=== PATIENT | female | born 1945 | race Caucasian/White ===

== ENCOUNTER 2017-03-28 06:14 | Day surgery (SDC) | payer MEDICARE, OTHER ==
--- NOTE | ~2017-03-28 | EGD ---
EGD REPORT [facility] [address] [place]. [address] NAME: RON CLANCY : [birth year] STATUS : REG [facility]#: [id number] AGE: 71 ADM/REG DATE : 03/28/17 MR#: [id number] REPORT SERV DATE: 03/28/17 DICTATED BY: JENNIE SAMSON DATE: 03/28/17 REPORT STATUS : Draft TRANSCRIBED BY: [facility] DATE: 03/28/17 Endoscopy Center Patient Name: Ron Clancy Date of : 1945 Attending MD: JENNIE SAMSON MD Procedure Date No Time: 03/28/2017 Procedure: Colonoscopy Indications: FH of Colon Cancer - multiple 1st degree relatives, FH of Colon Cancer - multiple second-degree relatives Referring MD: John Stahl Medicines: as per anesthesia Complications: No immediate complications. Procedure: Pre-Anesthesia Assessment: - ASA Grade Assessment: III - A patient with severe systemic disease. After I obtained informed consent, the scope was passed under direct vision. Throughout the procedure, the patient's blood pressure, pulse, and oxygen saturations were monitored continuously. The PCF [id number] was introduced through the anus and advanced to the cecum, identified by appendiceal orifice and ileocecal valve. The colonoscopy was performed without difficulty. The patient tolerated the procedure. The quality of the bowel preparation was adequate to identify polyps. Findings: The perianal and digital rectal examinations were normal. Many small and large-mouthed diverticula were found in the sigmoid colon. Internal hemorrhoids were found during endoscopy and were mild. Impression: - Diverticulosis in the sigmoid colon. - Internal hemorrhoids. Recommendation: - Repeat colonoscopy in 5 years for surveillance. Procedure Code(s): --- Professional --- 69842, Colonoscopy, flexible, proximal to splenic flexure; diagnostic, with or without collection of specimen(s) by brushing or washing, with or without colon decompression (separate procedure) Diagnosis Code(s): --- Professional --- K64.8, Other hemorrhoids K57.30, Diverticulosis of large intestine without perforation or abscess without bleeding EGD REPORT [facility] [address] [place] [address] [address] [facility]. [address] NAME: RON CLANCY : [birth year] STATUS : REG [facility] PAT#: [id number] AGE: 71 ADM/REG DATE : 03/28/17 MR#: [id number] REPORT SERV DATE: 03/28/17 DICTATED BY: JENNIE SAMSON. DATE: 03/28/17 REPORT STATUS : Draft TRANSCRIBED BY: [employer] DATE: 03/28/17 Z80.0, Family history of malignant neoplasm of digestive organs CPT copyright 2013 [employer]. All rights reserved. The codes documented in this report are preliminary and upon vinyl hanger review may be revised to meet current compliance requirements. JENNIE SAMSON MD 03/28/2017 8:12 AM This report has been signed electronically. Number of Addenda: 0 Note Initiated On: 03/28/2017 7:43 AM Scope Withdrawal Time 0 hours 7 minutes 40 seconds [address] [facility] [place] [address]
[~2017-03-28 06:14] MED LIST: ARMOUR THYRO120 MG PO; FLEX PO; LEVOTHYROXIN100 MCG PO; LIPITOR20 PO; LOP25 PO; METHOC500B PO; METROLOTION0.75 % TOP; MULTIPLE VIT PO; OS500+D PO; PLAVIX PO; PRILOSEC40 MG PO; PRIN2.5 PO; PROTONIX PO; REST15 PO; ROCALTROL0.25 MCG PO; SYN1 PO; ULTRAM50 PO; ZANAFLEX2 MG PO; ZESTORETIC1 TA1 PO
== END 2017-03-28 23:59 | disposition home health service (06) ==
LOC: DMU 06:14
PROVIDERS: Internal Medicine Gastroenterology
PROC: 0DJD8ZZ Inspection of Lower Intestinal Tract, Via Natural or Artificial Opening Endoscopic (ICD-10-PCS; principal; 2017-03-28 07:30)
DX: Z12.11 Encounter for screening for malignant neoplasm of colon (principal); K64.8 Other hemorrhoids; K57.30 Diverticulosis of large intestine without perforation or abscess without bleeding; E66.01 Morbid (severe) obesity due to excess calories; K21.9 Gastro-esophageal reflux disease without esophagitis; N18.9 Chronic kidney disease, unspecified; E03.9 Hypothyroidism, unspecified; I12.9 Hypertensive chronic kidney disease with stage 1 through stage 4 chronic kidney disease, or unspecified chronic kidney disease; M19.90 Unspecified osteoarthritis, unspecified site; Z80.0 Family history of malignant neoplasm of digestive organs; Z88.6 Allergy status to analgesic agent; Z88.8 Allergy status to other drugs, medicaments and biological substances; Z90.710 Acquired absence of both cervix and uterus; Z87.442 Personal history of urinary calculi; Z98.890 Other specified postprocedural states
CPT/HCPCS: J0290; J1580